=== PATIENT | female | born 1970 | race Hispanic/Latino ===

== ENCOUNTER 2021-03-14 12:13 | Outpatient (CLI) | payer OTHER | END 2021-03-14 12:14 | disposition home or self-care (01) | LOC: CSHRAD 12:13 | PROVIDERS: ATTEND Psychiatry & Neurology Neurology | DX: M54.9 Dorsalgia, unspecified (principal); M53.3 Sacrococcygeal disorders, not elsewhere classified | CPT/HCPCS: 72100 ==

== ENCOUNTER 2022-06-28 12:01 | Inpatient (IN) | payer SELFPAY ==
[2022-06-28 13:31] LABS: #Basophils 0.1 10x3/uL (0.0-0.2); #Eosinphils 0.1 10x3/uL (0.0-0.5); #Monocytes 1.2 10x3/uL (0.0-1.1); %Basophils 0.4 % (0.0-2.0); %Eosinophils 0.7 % (0.0-6.0); %Lymphocytes 24.6 % (18.0-47.0); %Monocytes 8.7 % (0.0-10.0); %Neutrophils 65.2 % (40.0-75.0); Hemoglobin 12.7 g/dL (12.0-15.5); Mean Corpuscular HGB CONC 32.4 g/dL (32.0-36.0); Mean Corpuscular Hemoglobin 28.2 pg (27.0-33.0); Mean Corpuscular Volume 86.9 fl (81.6-98.3); Mean Platelet Volume 9.4 fl (7.4-10.4); Platelet Count 297 10x3/uL (150-450); RBC Distribution Width 13.4 % (11.5-14.5); Red Blood Cell (RBC) Count 4.51 10x6/uL (3.90-5.03); White Blood Cell (WBC) Count 13.7 10x3/uL (3.5-10.5)
[2022-06-28 13:58] LABS: ALT (SGPT) 16 U/L (8-55); AST (SGOT) 15 U/L (5-34); Albumin 4.3 g/dL (3.5-5.0); Alkaline Phosphatase 100 U/L (40-110); Anion Gap 17 mmol/L (10-20); BUN (Urea Nitrogen) 21 mg/dL (9.8-20.1); Bilirubin, Total 0.6 mg/dL (0.2-1.2); Calc. Creatinine Clearance 0 mL/min (70-130); Calcium 9.5 mg/dL (7.8-10.44); Carbon Dioxide 20 mmol/L (22-29); Chloride 103 mmol/L (98-107); Estimated GFR 53; Globulin 3.7 g/dL (2.4-3.5); Glucose 101 mg/dL (70-105); Lipase 29 U/L (8-78); Potassium 4.1 mmol/L (3.5-5.1); Sodium 136 mmol/L (136-145)
[2022-06-28 14:10] LABS: SARS-CoV-2 NAA Rapid Test Not Detected (NotDetected)
[2022-06-28] MEDS ORDERED: Ketorolac Tromethamine 30 MG/ML VIAL ONE (16:02)
[2022-06-28 16:40] LABS: Bilirubin Neg (Negative); Blood, Urine 25 (Negative); Clarity Cloudy (Clear); Glucose, Urine (Dipstick) Normal (Negative); Ketone, Urine Negative (Negative); Leukocyte 500 (Negative); Nitrite Positive (Negative); Protein, Urine (Dipstick) 15 mg/dl (Neg-Trace); Specific Gravity, Urine 1.015 (1.005-1.030); Urobilinogen Normal mg/dL (Less than 2)
[2022-06-28 16:42] LABS: Pregnancy Test - Urine (BHCG) Negative (Negative); Pregu Control Background? CLEAR/WHITE (CLR/WHITE); Pregu Control Bar Appear? YES (CONTROL BAR); Specific Gravity 1.015 (1.002-1.036)
[2022-06-28 16:57] LABS: Bacteria/HPF 3+ HPF (None Seen); Mucous/LPF 1+ LPF (<2+); RBC/HPF 0-3 HPF (0-3); WBC/HPF Greater Than 50 HPF (0-3)
[2022-06-28] MEDS ORDERED: cefTRIAXone (ROCEPHIN) 2 GM VIAL ONE (17:53)
[2022-06-28] MEDS ORDERED: Senokot S 8.6-50 MG TAB PO PRN (19:28)
[2022-06-28] MEDS ORDERED: Ondansetron ODT 4 MG TAB PO PRN (19:28)
[2022-06-28] MEDS ORDERED: Ondansetron PF 4 MG/2 ML Vial IVP PRN (19:28)
[2022-06-28] MEDS ORDERED: Calcium Carbonate 500 MG ChewTAB PO PRN (19:28)
[2022-06-28 19:52] LABS: Magnesium 2.4 mg/dL (1.6-2.6)
[2022-06-28] MEDS ORDERED: Iopamidol 45 ML ONE (20:14)
[2022-06-28] MEDS ORDERED: PROPOFOL 20 ML ONE (21:10)
[2022-06-28] MEDS ORDERED: Fentanyl 250 MCG/5 ML VIAL ONE (21:11)
[2022-06-28] MEDS ORDERED: Fentanyl 100 MCG/2 ML VIAL ONE (21:11)
[2022-06-28] MEDS ORDERED: Succinylcholine 200 MG/10 ml SYRINGE FS ONE (21:15)
[2022-06-28] MEDS ORDERED: Ondansetron PF 4 MG/2 ML Vial ONE (21:15)
[2022-06-28] MEDS ORDERED: Rocuronium Bromide 10 MG/ML (10ML VIAL) ONE (21:15)
[2022-06-28] MEDS ORDERED: Acetaminophen 500 MG TAB ONE (22:01)
[2022-06-28] MEDS ORDERED: Non-Formulary Medication 1 EACH PO PRN (22:17)
[2022-06-28] MEDS ORDERED: Acetaminophen 500 MG TAB PO SCH (22:30)
[2022-06-28] MEDS ORDERED: Promethazine HCl 25 MG/ML VIAL IM/IV PRN (22:30)
[2022-06-28] MEDS ORDERED: Ondansetron HCl/PF 4 MG/2 ML Vial IVP PRN (22:30)
[2022-06-28] MEDS: Atorvastatin Calcium 40 MG TAB PO SCH (23:10)
[2022-06-28] MEDS: NS 0.9% w/ 20 MEQ KCL 1,000 ML/1,000 ML BAG IV SCH (23:10)
[2022-06-28] MEDS: Gabapentin 300 MG CAP PO SCH (23:11)
[2022-06-29 04:50] LABS: Anion Gap 12 mmol/L (10-20); BUN (Urea Nitrogen) 18 mg/dL (9.8-20.1); Calc. Creatinine Clearance 188 mL/min (70-130); Calcium 8.4 mg/dL (7.8-10.44); Carbon Dioxide 20 mmol/L (22-29); Chloride 111 mmol/L (98-107); Estimated GFR 81; Glucose 95 mg/dL (70-105); Sodium 139 mmol/L (136-145)
[2022-06-29 05:18] LABS: #Eosinphils 0.2 10x3/uL (0.0-0.5); #Monocytes 0.9 10x3/uL (0.0-1.1); #Neutrophils 4.9 10x3/uL (1.5-8.4); %Basophils 0.4 % (0.0-2.0); %Eosinophils 2.3 % (0.0-6.0); %Lymphocytes 35.6 % (18.0-47.0); %Monocytes 9.9 % (0.0-10.0); %Neutrophils 51.5 % (40.0-75.0); Hemoglobin 11.9 g/dL (12.0-15.5); Mean Corpuscular HGB CONC 31.6 g/dL (32.0-36.0); Mean Corpuscular Hemoglobin 28.5 pg (27.0-33.0); Mean Corpuscular Volume 90.2 fl (81.6-98.3); Mean Platelet Volume 9.8 fl (7.4-10.4); Platelet Count 275 10x3/uL (150-450); RBC Distribution Width 13.6 % (11.5-14.5); Red Blood Cell (RBC) Count 4.18 10x6/uL (3.90-5.03); White Blood Cell (WBC) Count 9.5 10x3/uL (3.5-10.5)
[2022-06-29] MEDS: NS 0.9% w/ 20 MEQ KCL 1,000 ML/1,000 ML BAG IV SCH ×2 (08:59→18:23)
[2022-06-29] MEDS: Ascorbic Acid 500 mg Chewable Tablet PO SCH (09:00)
[2022-06-29] MEDS: Gabapentin 300 MG CAP PO SCH ×4 (09:00→21:51)
[2022-06-29] MEDS: Acetaminophen 325 MG TAB PO PRN ×2 (09:01→18:24)
[2022-06-29] MEDS: Famotidine 20 MG TAB PO SCH ×2 (09:01→21:52)
[2022-06-29] MEDS: Lisinopril 20 MG TAB PO SCH (09:01)
[2022-06-29] MEDS: Zinc Sulfate 220 MG CAP PO SCH (10:19)
[2022-06-29] MEDS: Ketorolac Tromethamine 30 MG/ML VIAL IVP PRN ×2 (10:19→18:27)
[2022-06-29 13:55] VITALS: BMI 46.2
[2022-06-29] MEDS ORDERED: NS 0.9% w/ 20 MEQ KCL 1,000 ML ONE ×2 (18:20)
[2022-06-29] MEDS: cefTRIAXone\\ROCEPHIN 2 GM in Sodium Chloride 0.9% 100 ML IVPB SCH (18:23)
[2022-06-29] MEDS: Atorvastatin Calcium 40 MG TAB PO SCH (21:52)
[2022-06-30] MEDS: NS 0.9% w/ 20 MEQ KCL 1,000 ML/1,000 ML BAG IV SCH ×3 (01:30→21:32)
[2022-06-30] MEDS: Acetaminophen 325 MG TAB PO PRN (05:09)
[2022-06-30] MEDS: Gabapentin 300 MG CAP PO SCH ×4 (08:27→21:32)
[2022-06-30] MEDS: Ascorbic Acid 500 mg Chewable Tablet PO SCH (08:28)
[2022-06-30] MEDS: Zinc Sulfate 220 MG CAP PO SCH (08:28)
[2022-06-30] MEDS: Lisinopril 20 MG TAB PO SCH (08:28)
[2022-06-30] MEDS: Famotidine 20 MG TAB PO SCH ×2 (08:28→21:31)
[2022-06-30] MEDS: Morphine 2 MG/ML VIAL SLOW IVP PRN ×2 (10:28→16:55)
[2022-06-30] MEDS: Ketorolac Tromethamine 30 MG/ML VIAL IVP PRN ×2 (12:21→18:47)
[2022-06-30] MEDS: cefTRIAXone\\ROCEPHIN 2 GM in Sodium Chloride 0.9% 100 ML IVPB SCH (18:41)
[2022-06-30] MEDS: Atorvastatin Calcium 40 MG TAB PO SCH (21:32)
[2022-07-01] MEDS: Morphine 2 MG/ML VIAL SLOW IVP PRN (05:28)
[2022-07-01] MEDS: NS 0.9% w/ 20 MEQ KCL 1,000 ML/1,000 ML BAG IV SCH ×2 (07:27→08:26)
[2022-07-01] MEDS: Gabapentin 300 MG CAP PO SCH ×2 (07:27→12:54)
[2022-07-01] MEDS: Lisinopril 20 MG TAB PO SCH (08:36)
[2022-07-01] MEDS: Ascorbic Acid 500 mg Chewable Tablet PO SCH (08:36)
[2022-07-01] MEDS: Famotidine 20 MG TAB PO SCH (08:37)
[2022-07-01] MEDS: Zinc Sulfate 220 MG CAP PO SCH (08:37)
[2022-07-01 12:17] VITALS: BP 134/98; TEMP 98.6
== END 2022-07-01 12:47 | disposition home or self-care (01) | DRG 854 ==
LOC: CSHERS 12:01 → CSHTELE 22:46
PROVIDERS: ADMIT Emergency Medicine; ATTEND Internal Medicine
PROC: 0T768DZ Dilation of Right Ureter with Intraluminal Device, Via Natural or Artificial Opening Endoscopic (ICD-10-PCS; principal; 2022-06-28)
PROC: 0TP98DZ Removal of Intraluminal Device from Ureter, Via Natural or Artificial Opening Endoscopic (ICD-10-PCS; 2022-06-28)
PROC: BT1D1ZZ Fluoroscopy of Right Kidney, Ureter and Bladder using Low Osmolar Contrast (ICD-10-PCS; 2022-06-28)
DX: A41.9 Sepsis, unspecified organism (principal); N13.6 Pyonephrosis; Z68.41 Body mass index [BMI] 40.0-44.9, adult; N17.9 Acute kidney failure, unspecified; I10 Essential (primary) hypertension; E78.5 Hyperlipidemia, unspecified; E66.01 Morbid (severe) obesity due to excess calories; R65.20 Severe sepsis without septic shock; G62.9 Polyneuropathy, unspecified; Z20.822 Contact with and (suspected) exposure to COVID-19; Z79.899 Other long term (current) drug therapy; Z86.16 Personal history of COVID-19; Z90.49 Acquired absence of other specified parts of digestive tract; Z98.51 Tubal ligation status; Z82.49 Family history of ischemic heart disease and other diseases of the circulatory system; Z83.3 Family history of diabetes mellitus; Z87.01 Personal history of pneumonia (recurrent); Z87.891 Personal history of nicotine dependence; Z82.3 Family history of stroke
CPT/HCPCS: 74176; 80048; 80053; 81003; 81015; 81025; 83690; 83735; 85025; 87040; 87086; 93005; C2625; J0696; J1650; J1885; J2272; J2405; J2704; J3010; J3480; J3490; Q9967

== ENCOUNTER 2024-09-28 14:33 | Emergency (ER) | payer MEDICARE, OTHER ==
[~2024-09-28 14:33] MED LIST: Iopamidol 370 76% 100 ML VIAL ONE
[2024-09-28 16:20] LABS: ALT (SGPT) 75 U/L (Less than 34); AST (SGOT) 23 U/L (11-34); Albumin 3.8 g/dL (3.1-4.5); Alkaline Phosphatase 118 U/L (40-110); Anion Gap 17 mmol/L (10-20); BUN (Urea Nitrogen) 22 mg/dL (9.8-20.1); Bilirubin, Total 0.4 mg/dL (0.3-1.2); Calc. Creatinine Clearance 0 mL/min (70-130); Calcium 9.2 mg/dL (7.8-10.44); Carbon Dioxide 18 mmol/L (22-29); Chloride 105 mmol/L (98-107); Globulin 4.0 g/dL (2.4-3.5); Glucose 129 mg/dL (70-105); Potassium 4.4 mmol/L (3.5-5.1); Sodium 136 mmol/L (136-145)
[2024-09-28 16:21] LABS: Troponin I Less than 0.010 ng/mL (< 0.028)
[2024-09-28] MEDS ORDERED: Dexamethasone 10 MG/ML VIAL ONE (16:32)
[2024-09-28 16:36] LABS: MDiff Complete? YES; Platelet Adequacy Comment Appears Adequate; RBC Morphology Within Normal Limits
[2024-09-28 16:40] LABS: Hematocrit 41.8 % (34.9-44.5); Hemoglobin 13.5 g/dL (12.0-15.5); Mean Corpuscular Hemoglobin 28.1 pg (27.0-33.0); Mean Corpuscular Volume 86.9 fL (81.6-98.3); Platelet Count 269 10x3/uL (150-450); Red Blood Cell (RBC) Count 4.81 10x6/uL (3.90-5.03); White Blood Cell (WBC) Count 13.19 10x3/uL (3.5-10.5)
== END 2024-09-28 18:15 | disposition home or self-care (01) ==
LOC: CSHERS 14:33
DX: R05.1 Acute cough (principal); R06.2 Wheezing; I10 Essential (primary) hypertension
CPT/HCPCS: 71275; 80053; 83880; 84484; 85025; 87428; 93005; J1100; 36415; 96374; Q9967